=== PATIENT | female | born 1950 | race Caucasian/White ===

== ENCOUNTER 2022-01-09 21:51 | Emergency (ER) | payer OTHER ==
[2022-01-09 22:04] VITALS: BP 152/96; PULSE 86; TEMP 98.3; BMI 26.5
[2022-01-09] MEDS ORDERED: SODIUM CHLORIDE 1,000 ML IV STA (23:00)
[2022-01-09 23:05] LABS: ALBUMIN 3.9 g/dl (3.4-5.0); CALCIUM 10.6 mg/dl (8.5-10); CREATININE 0.8 mg/dl (0.55-1.3); MAGNESIUM 1.8 mg/dL (1.8-2.4); PHOSPHOROUS 3.6 mg/dl (2.5-4.9); TOT PROT 7.1 g/dl (6.4-8.2)
[2022-01-09 23:12] LABS: EPITHELIAL CELLS MODERATE /hpf
[2022-01-09 23:41] LABS: BASO % 0.4 % (0-2.0); EOS % 0.8 % (0-4.5); HEMATOCRIT 36.3 % (32.4-45.2); LYMPH % 29.6 % (8-40); MCH 27.2 pg (25.7-33.7); MCHC 33.1 g/dl (32.0-36.0); MEAN CELL VOLUME 82.2 fl (80-96); MEAN PLT VOLUME 8.7 fl (7.5-11.1); MONO % 7.2 % (3.8-10.2); PLATELET COUNT 314 10^3/uL (134-434); RBC 4.42 M/mm3 (3.60-5.2); RDW 13.6 % (11.6-15.6); WHITE BLOOD COUNT 8.5 K/mm3 (4.0-10.0)
== END 2022-01-10 00:11 | disposition home or self-care (01) ==
LOC: FER 21:51
PROC: 3E0337Z Introduction of Electrolytic and Water Balance Substance into Peripheral Vein, Percutaneous Approach (ICD-10-PCS; principal; 2022-01-09)
DX: E11.65 Type 2 diabetes mellitus with hyperglycemia (principal)
CPT/HCPCS: 36415; 80053; 81003; 81015; 82010; 82962; 83735; 84100; 85025; 87086; 87186; 96360; 99283-25